=== PATIENT | female | born 1970 | race Caucasian/White ===

== ENCOUNTER → 2022-06-28 | Emergency (ER) | payer OTHER | END | disposition left against medical advice (07) | LOC: ER 18:08 | DX: I10 Essential (primary) hypertension (principal) ==

== ENCOUNTER 2025-08-14 10:12 | Emergency (ER) | payer OTHER ==
[~2025-08-14] VITALS: Ht 154.9 cm; Wt 71.7 kg
[2025-08-14] MEDS ORDERED: CARVEDILOL12.5 MG (10:33)
[2025-08-14] MEDS ORDERED: MORPHINE SULFATE 4 MG/ML CARTRIDGE IV ONE (12:00)
[2025-08-14] MEDS ORDERED: METRONIDAZOLE/SODIUM CHLORIDE 500 MG/100 ML PIGGYBACK IV ONE (12:00)
[2025-08-14] MEDS ORDERED: 0.9 % SODIUM CHLORIDE 1,000 ML IV SCH (12:00)
[2025-08-14] MEDS ORDERED: METHYLPREDNISOLONE SOD SUCC 125 MG VIAL IV ONE (12:15)
[2025-08-14] MEDS ORDERED: DIPHENHYDRAMINE HCL 50 MG/ML VIAL 1ML IV ONE (12:15)
[2025-08-14 12:21] LABS: BASO % 0.6 % (0.1-1.2); EOS # 0.39 (0.04-0.54); EOS % 5.0 % (0.7-7.0); LYMPH # 3.37 (1.18-3.74); LYMPH % 42.8 % (19.3-53.1); MEAN PLATELET VOLUME 9.40 fl (9.4-12.4); MONO # 0.46 (0.24-0.82); MONO % 5.8 % (4.7-12.5); NEUT # 3.59 (1.56-6.13); NEUT % 45.7 % (34.0-71.1); RED CELL DISTRIBUTION WIDTH 13.6 % (11.6-14.4)
[2025-08-14 12:49] LABS: URINE APPEARANCE Clear; URINE BILIRRUBIN Negative (NEGATIVE); URINE BLOOD Negative; URINE COLOR Yellow; URINE GLUCOSE Negative (NEGATIVE); URINE KETONE Negative (NEGATIVE); URINE LEUKOCYTE Negative; URINE NITRATE Negative; URINE PROTEIN Negative (NEGATIVE); URINE UROBILINOGEN 0.2 E.U./dl
[2025-08-14 12:53] LABS: URINE BACTERIA 928.6 uL (0.0-1933); URINE EPITHELIAL CELLS 24.5 uL (0.0-38.8); URINE RBC 9.0 uL (0.0-20.8); URINE WBC 11.8 uL (0.0-23.2)
[2025-08-14 13:05] LABS: COVID-19 AG NEGATIVE (NEGATIVE)
[2025-08-14 13:24] LABS: INR 1.02
[2025-08-14 13:31] LABS: ALT/SGPT 30.0 U/L (12-78); AST/SGOT 14.0 U/L (15-37); BILIRUBIN TOTAL 0.33 mg/dL (0.3-1.2); BUN CREA RATIO 17.0 (7.0-25.0); CREATININE SERUM 0.77 mg/dL (0.55-1.02); GFR 78.12; GLOBULINA 4.4 G/DL (2.4-3.5); GLUCOSE FASTING 95.0 mg/dL (65-100); OSMOLALITY SERUM 287.0 MOSM/KG (275-295)
[2025-08-14 14:09] LABS: URINE CAST 0.00 uL (0.0-1.40)
== END 2025-08-14 18:22 | disposition home or self-care (01) ==
LOC: ER 10:12
PROVIDERS: Emergency Medicine
DX: K59.01 Slow transit constipation (principal); Z88.8 Allergy status to other drugs, medicaments and biological substances; Z88.6 Allergy status to analgesic agent; Z88.0 Allergy status to penicillin; Z91.013 Allergy to seafood; Z20.822 Contact with and (suspected) exposure to COVID-19